=== PATIENT | female | born 1960 | race Two or more races ===

== ENCOUNTER 2021-12-31 06:47 | Day surgery (SDC) | payer OTHER ==
[~2021-12-31 06:47] MED LIST: ATORVASTATIN CA10 MG PO
== END 2021-12-31 22:15 | disposition home or self-care (01) ==
LOC: CIR.AMB 06:47
PROVIDERS: ATTEND Surgery
DX: C50.912 Malignant neoplasm of unspecified site of left female breast (principal)

== ENCOUNTER 2024-05-24 06:36 | Day surgery (SDC) | payer OTHER ==
[~2024-05-24] VITALS: Ht 149.9 cm; Wt 80.7 kg
[~2024-05-24 06:36] MED LIST changes: +TRIAMTERENE-HC1 EAC3 PO; +ZESTRIL10 M1 PO
[2024-05-25] MEDS ORDERED: CIPROFLOXACIN IN 5 % DEXTROSE 400 MG/200 ML PIGGYBAG IV ONE (00:17)
== END 2024-05-25 03:55 | disposition home or self-care (01) ==
LOC: CIR.AMB 06:36
PROVIDERS: ATTEND Surgery
DX: D24.2 Benign neoplasm of left breast (principal); N60.82 Other benign mammary dysplasias of left breast; R92.1 Mammographic calcification found on diagnostic imaging of breast; I10 Essential (primary) hypertension; E78.00 Pure hypercholesterolemia, unspecified; Z88.0 Allergy status to penicillin; Z88.2 Allergy status to sulfonamides